=== PATIENT | male | born 1950 | race African-American/Black ===

== ENCOUNTER 2019-07-23 22:44 | Emergency (ER) | payer MEDICAID, MEDICARE ==
[~2019-07-23] VITALS: Ht 185.4 cm; Wt 67.2 kg
[2019-07-24] MEDS ORDERED: LIDOCAINE HCL/PF 1% 10 MG/ML 5ML VIAL IJ ONE (01:15)
[2019-07-24] MEDS ORDERED: BACITRACIN ZINC OINT UDPKT TOP ONE (01:15)
[2019-07-24 04:44] VITALS: BP 162/80
== END 2019-07-24 04:45 | disposition home or self-care (01) ==
LOC: ER 23:00
DX: L03.011 Cellulitis of right finger (principal); F17.290 Nicotine dependence, other tobacco product, uncomplicated; F12.10 Cannabis abuse, uncomplicated; Z88.0 Allergy status to penicillin
CPT/HCPCS: 99281; J3490